=== PATIENT | female | born 1995 | race Caucasian/White ===

== ENCOUNTER 2016-05-29 23:19 | Emergency (ER) | payer OTHER ==
[~2016-05-29] VITALS: Ht 162.6 cm; Wt 69.7 kg
[~2016-05-29 23:19] MED LIST: CIPRO250 MG PO; FLOMAX0.4 MG PO; PERCOCET 5/31 TABLET PO; ZOFRAN ODT4 MG PO
[2016-05-30 00:27] LABS: HEMATOCRIT 37.1 % (36.0-46.0); MCV 88.3 FL (83-99); MEAN PLAT.VOLUME 11.6 uM^3 (9.5-12.4); PLATELET COUNT 176 K/uL (156-360); RBC DIS.WIDTH-SD 40.5 % (39-53)
[2016-05-30 00:39] LABS: CHLORIDE 104 mEq/L (99-109); POTASSIUM 3.5 mEq/L (3.7-5.4); SODIUM 138 mEq/L (136-147)
[2016-05-30 00:42] LABS: GLUCOSE 80 mg/dL (70-99)
[2016-05-30 00:43] LABS: ADD MIUA? NO; UCUL ADDED? NO
[2016-05-30 00:43] LABS: ANION GAP 12 MEQ/L (2-14)
[2016-05-30 00:44] LABS: COLOR YELLOW ((YELLOW))
[2016-05-30 00:44] LABS: TOTAL BILIRUBIN 0.6 mg/dL (0.0-1.0)
[2016-05-30 00:45] LABS: BILIRUBIN NEGATIVE; BLOOD NEGATIVE; GLUCOSE (STRIP) NEGATIVE; KETONES 80; LEUKOCYTES NEGATIVE; NITRITE NEGATIVE; PROTEIN (STRIP) TRACE; UROBILINOGEN 0.2 MG/DL (0.2-1.0)
[2016-05-30 00:45] LABS: ALKALINE PHOSPHATASE 40 IU/L (3-129); GFR ESTIMATE (CALCULATED) > 59 mL/min/
[2016-05-30 00:46] LABS: UREA NITROGEN (BUN) 10 mg/dL (9-23)
[2016-05-30 01:21] LABS: QUANTITATIVE HCG 30689.4 MIU/ML
[2016-05-30 02:38] VITALS: BP 113/69
== END 2016-05-30 02:42 | disposition home or self-care (01) ==
LOC: EME 23:19 → RME 23:19
PROVIDERS: Emergency Medicine
DX: Z04.71 Encounter for examination and observation following alleged adult physical abuse (principal); O26.892 Other specified pregnancy related conditions, second trimester; O21.8 Other vomiting complicating pregnancy; Z3A.14 14 weeks gestation of pregnancy
CPT/HCPCS: 76801; 80053; 81003; 84702; 85027; 99281; 99284

== ENCOUNTER 2016-11-09 22:19 | Inpatient (IN) | payer OTHER ==
[~2016-11-09] VITALS: Ht 152.4 cm; Wt 89.5 kg
[2016-11-09 22:52] VITALS: BP 120/75
[2016-11-09 23:00] LABS: BASOPHIL COUNT 0.1 K/uL (0-0.1); EOSINOPHIL (%) 0.4 % (0-5); EOSINOPHIL COUNT 0.1 K/uL (0-0.3); HEMATOCRIT 33.8 % (36.0-46.0); IMMATURE GRANULOCYTE COUNT 0.3 K/uL; INSTRUMENT ABS NEUTROPHIL CT 22.6 K/uL; LYMPHOCYTE COUNT 2.9 K/uL (1.0-2.8); MCH 31.1 PG (29.0-34.0); MCV 91.4 FL (83-99); MEAN PLAT.VOLUME 12.7 uM^3 (9.5-12.4); MONOCYTE (%) 4.6 % (3-12); MONOCYTE COUNT 1.3 K/uL (0-0.8); NEUTROPHIL (%) 83.2 % (45-76); NEUTROPHIL COUNT 22.6 K/uL (1.8-6.4); PLATELET COUNT 160 K/uL (156-360); RBC DIS.WIDTH-CV 12.1 % (11.8-14.6); RBC DIS.WIDTH-SD 40.6 % (39-53); WHITE BLOOD COUNT 27.2 K/uL (4.1-10.2)
[2016-11-09] MEDS ORDERED: PRENATAL TABLE1 EAC3 PO (23:05)
[2016-11-10 02:00] VITALS: BP 101/58
[2016-11-10 03:25] VITALS: BP 101/56
[2016-11-10 05:15] VITALS: BP 111/60
[2016-11-10 16:41] LABS: MEAN PLAT.VOLUME 12.4 uM^3 (9.5-12.4); PLATELET COUNT 138 K/uL (156-360)
[2016-11-10 16:49] LABS: HEMATOCRIT 29.3 % (36.0-46.0); MCH 32.4 PG (29.0-34.0); MCHC 35.2 G/DL (30.0-36.0); MCV 92.1 FL (83-99); RBC DIS.WIDTH-CV 12.3 % (11.8-14.6); RBC DIS.WIDTH-SD 41.5 % (39-53); RED BLOOD COUNT 3.18 M/uL (3.80-5.20)
[2016-11-10 16:50] LABS: WHITE BLOOD COUNT 32.5 K/uL (4.1-10.2)
[2016-11-10 19:00] VITALS: BP 107/62
[2016-11-10 23:15] VITALS: BP 122/73
[2016-11-11 03:00] VITALS: BP 104/55
[2016-11-11 06:55] LABS: EOSINOPHIL (%) 0.6 % (0-5); EOSINOPHIL COUNT 0.1 K/uL (0-0.3); HEMATOCRIT 28.8 % (36.0-46.0); IMMATURE GRANULOCYTE COUNT 0.2 K/uL; INSTRUMENT ABS NEUTROPHIL CT 19.5 K/uL; LYMPHOCYTE COUNT 2.2 K/uL (1.0-2.8); MCH 31.3 PG (29.0-34.0); MCHC 33.3 G/DL (30.0-36.0); MCV 93.8 FL (83-99); MEAN PLAT.VOLUME 12.5 uM^3 (9.5-12.4); MONOCYTE (%) 4.4 % (3-12); NEUTROPHIL (%) 84.6 % (45-76); NEUTROPHIL COUNT 19.5 K/uL (1.8-6.4); PLATELET COUNT 135 K/uL (156-360); RBC DIS.WIDTH-CV 12.4 % (11.8-14.6); RBC DIS.WIDTH-SD 42.5 % (39-53); RED BLOOD COUNT 3.07 M/uL (3.80-5.20); WHITE BLOOD COUNT 23.1 K/uL (4.1-10.2)
[2016-11-11 07:56] VITALS: BP 124/66
[2016-11-11 11:52] VITALS: BP 130/69
[2016-11-11 14:39] VITALS: BP 121/58
[2016-11-11 19:44] VITALS: BP 139/64
[2016-11-11 22:47] VITALS: BP 112/65
[2016-11-12 07:27] VITALS: BP 115/72
[2016-11-12] MEDS ORDERED: ENDOCET 5-3251 EACH PO (13:50)
[2016-11-12] MEDS ORDERED: VITAMIN C500 M1 PO (13:50)
[2016-11-12] MEDS ORDERED: FERROUS SULFAT325 MG PO (13:50)
[2016-11-12] MEDS ORDERED: IBUPROFEN800 MG PO (13:50)
[2016-11-12] MEDS ORDERED: DOCUSATE SODIU100 MG PO (13:50)
== END 2016-11-12 15:40 | disposition home or self-care (01) | DRG 765 ==
LOC: LDRP-OP → 2WEST 22:20 → LDRP-OP 12-31 15:44
PROVIDERS: Obstetrics & Gynecology
PROC: 10D00Z1 Extraction of Products of Conception, Low, Open Approach (ICD-10-PCS; principal; 2016-11-09)
DX: O32.1XX0 Maternal care for breech presentation, not applicable or unspecified (principal); D62 Acute posthemorrhagic anemia; O99.02 Anemia complicating childbirth; O26.03 Excessive weight gain in pregnancy, third trimester; Z87.891 Personal history of nicotine dependence; Z3A.37 37 weeks gestation of pregnancy; Z37.0 Single live birth
CPT/HCPCS: 85025; 85027; 86900; 86901; J0690; J1100; J1170; J1200; J2274; J2405; J2765; J7120